=== PATIENT | female | born 1945 | race Caucasian/White ===

== ENCOUNTER 2021-12-24 07:18 | Emergency (ER) | payer MEDICARE ==
[2021-12-24 07:25] VITALS: BP 164/90; PULSE 81
[2021-12-24 08:23] VITALS: O2SAT 96
--- NOTE | 2021-12-24 08:23 | ERPHSYRPT ---
- History of Present Illness Time Seen by Provider: 12/24/21 07:20 Source: patient Exam Limitations: no limitations Patient Subjective Stated Complaint: PT WAS BRINGING SON TO ER AND HE SHUT THE VAN DOOR AND HIT HER IN THE HEAD, PT FELL TO GROUND AND HAS LACERATION TO HEAD Triage Nursing Assessment: PT BROUGHT TO ER IN WC, ALERT, RESP EASY, SKIN W/D/P, BLEEDING FROM HEAD, HAS 2 1 CM LACERATIONS TO HEAD, DRESSING APPLIED, AND WOUNDS CLEANSED, SHE DENIES ANY OTHER COS Physician History: 76 years old female presented in the ER with chief complaint of head injury and fall. Patient apparently brought her son to the ER and car door accidentally hit the patient head and she fell on the ground. No loss of consciousness. Couple of superficial laceration with minimal bleeding. Denies any neck pain, blurry vision, numbness tingling focal weakness or difficulty speech. No injury anywhere else. Up-to-date with tetanus. Patient has fibromyalgia and has been on pain medication and does not want anything for pain. No headache. Occurred: just prior to arrival Severity: mild Head Injury Location: parietal Method of Injury: direct blow Loss of Consciousness: no loss of consciousness Associated Symptoms: denies symptoms Allergies/Adverse Reactions: Sulfa (Sulfonamide Antibiotics) Allergy (Verified 12/24/21 07:22) Home Medications: Hydrocodone/Acetaminophen [Hydrocodone-Acetamin 7.5-325] 1 ea BID 12/24/21 [History] Indapamide 1 ea DAILY 12/24/21 [History] Pramipexole Di-HCl 0.5 mg [Mirapex 0.5 MG Tablet] 0.5 mg PO DAILY 12/24/21 [History] Tramadol HCl 50 mg [Ultram 50 mg] 1 ea BID 12/24/21 [History] Hx Tetanus, Diphtheria Vaccination/Date Given: Yes (2 YEARS) Hx Influenza Vaccination/Date Given: Yes Hx Pneumococcal Vaccination/Date Given: Yes Immunizations Up to Date: Yes Travel Risk - International Travel Have you traveled outside of the country in past 3 weeks: No - Coronavirus Screening Are you exhibiting any of the following symptoms?: No - Vaccine Status Have you recieved a Covid-19 vaccination: Yes [employer]: Moderna - Vaccination Dates Date of 2cond Vaccination (if applicable): 2020 - Review of Systems Constitutional: No Symptoms Eyes: No Symptoms Ears, Nose, & Throat: No Symptoms Respiratory: No Symptoms Cardiac: No Symptoms Abdominal/Gastrointestinal: No Symptoms Genitourinary Symptoms: No Symptoms Musculoskeletal: Arthralgias Skin: Skin Lesions Neurological: No Symptoms Psychological: No Symptoms Endocrine: No Symptoms Hematologic/Lymphatic: No Symptoms Immunological/Allergic: No Symptoms - Past Medical History Pertinent Past Medical History: Yes Musculoskeletal History: Arthritis, Fibromyalgia, Osteoporosis Other Medical History: FX RIGHT WRIST - Past Surgical History Past Surgical History: Yes Musculoskeletal: Orthopedic Surgery Other Surgical History: KNEE , RIGHT SHOULDER,HIP REPLACED - Social History Smoking Status: Never smoker Drug Use: none Patient Lives Alone: No - Nursing Vital Signs Nursing Vital Signs: Initial Vital Signs Temperature 97.2 F 12/24/21 07:24 Pulse Rate 81 12/24/21 07:24 Respiratory Rate 18 12/24/21 07:24 Blood Pressure 164/90 12/24/21 07:24 Pain Scale Pain Intensity 2 - Iona Coma Score Best Eye Response (Mello): (4) open spontaneously Best Verbal Response (Mello): (5) oriented Best Motor Response (Mello): (6) obeys commands Iona Total: 15 - Physical Exam General Appearance: no apparent distress, alert Head Injury: lacerations (1 cm laceration at the vertex and 1 cm right parietal area with no active spurting. Superficial lacerations.), tenderness (Minimal tenderness around laceration areas), No Segundo's Sign, No raccoon eyes Eye Exam: bilateral eye: normal inspection, PERRL, EOMI ENT Exam: airway nml, No evidence of ENT injury Neck Exam: supple, trachea midline, full range of motion, normal alignment, normal inspection Cardiovascular/Respiratory Exam: chest non-tender, normal breath sounds, regular rate/rhythm Gastrointestinal/Abdominal Exam: soft, No tenderness Extremity Exam: non-tender, normal range of motion Mental Status Exam: alert, oriented x 3, cooperative centerpuncher Exam: normal hearing, normal speech, PERRL Coordination/Gait Exam: normal finger to nose, normal cerebellar function Motor/Sensory Exam: no motor deficit, no sensory deficit, no pronator drift, negative Babinski's sign DTR Exam: bicep (R): 2+, bicep (L): 2+, knee (R): 2+, ankle (R): 2+ Skin Exam: normal color SpO2 Interpretation: normal SpO2: 96 O2 Delivery: Room Air Procedures - Laceration/Wound Repair Head Time of Procedure: 08:10 Wound Location: head Wound Length (cm): 2 Wound's Depth, Shape: superficial Wound Explored: clean Irrigated: Yes Hibiclens Prep: Yes Wound Repaired With: Steri-strips, Dermabond Layer Closure?: No Ordered Tests: Active Orders 24 hr Category Date Time Status House Regular Diet Diet 12/24/21 Lunch Active CERVICAL SPINE WO CONTRAST [CT] Stat Exams 12/24/21 07:30 Completed HEAD WITHOUT CONTRAST [CT] Stat Exams 12/24/21 07:30 Completed - Progress Progress: unchanged, re-examined Progress Note: 12/24/21 76 years old is evaluated in the ER for head injury with scalp laceration superficial without loss of consciousness. She denies any headache. Nonfocal neuro exam throughout stay in the ER. CT head and cervical spine negative for any acute trauma related findings. Discussed with patient about stable versus glue Steri-Strip and she wants to go with Dermabond. Lacerations are repaired. Discussed signs symptoms of head injury needing return to ER which she seems understanding. Stable for discharge. Counseled pt/family regarding: diagnosis, need for follow-up, rad results - Departure Departure Disposition: Home Clinical Impression: Scalp laceration, Fall Condition: Stable Critical Care Time: No Referrals: S[facility] [employer] EXAMINER [Primary Care Provider] - Follow Up with PCP/3 days Instructions: Head Injury Observation (DC) Additional Instructions: Tylenol as needed. Keep your laceration area clean. Follow-up with primary care for reevaluation. Follow head injury instructions and return to ER for any worsening.
--- NOTE | 2021-12-24 20:02 | XRAY ---
Indication: Head injury following fall. Multiple contiguous axial images obtained through the head without contrast. Comparison: None Age-appropriate global atrophy and moderate periventricular degenerative micro-ischemia bilaterally. No acute intracranial hemorrhage, abnormal extra-axial fluid collection, or mass effect. Fourth ventricle is midline without hydrocephalus. Bony calvarium intact. Visualized paranasal sinuses and mastoid air cells are clear. Impression: Nonacute senile brain. Comment: Preliminary interpretation made by [facility]. No critical discrepancy.
--- NOTE | 2021-12-24 20:06 | XRAY ---
Indication: Pain following fall. Multiple contiguous axial images obtained through the cervical spine. Sagittal and coronal reformatted images obtained. Comparison: None Osseous structures demineralized consistent with patient's age. No acute fracture, suspicious bony lesions, or spinal canal stenosis. Minimal/mild C3-C7 degenerative endplate spurring and mild multilevel bilateral degenerative facet hypertrophy. Moderate atlantoaxial degenerative arthropathy. Sagittal and coronal reformatted images demonstrates lordotic reversal centered at C4, positional versus paraspinal spasm. C3-C7 degenerative disc space loss. No acute compression fracture, subluxation, or jump facet. Normal appearing craniocervical junction. Visualized noncontrasted soft tissues demonstrates mild bilateral carotid calcifications. Impression: 1. Cervical lordotic reversal, positional versus paraspinal spasm. 2. Negative for acute fracture/subluxation. 3. Incidental osteopenia and multilevel degenerative changes. Comment: Preliminary interpretation made by C. No critical discrepancy.
== END 2021-12-24 08:50 | disposition home or self-care (01) ==
LOC: ED 07:18
DX: S01.01XA Laceration without foreign body of scalp, initial encounter (principal); W18.09XA Striking against other object with subsequent fall, initial encounter; Z79.891 Long term (current) use of opiate analgesic; Z79.899 Other long term (current) drug therapy
CPT/HCPCS: 12001; 70450; 72125; 99283